=== PATIENT | male | born 2000 | race Caucasian/White ===

== ENCOUNTER 2021-04-12 02:22 | Outpatient (CLI) | payer MEDICAID, SELFPAY ==
[2021-04-12 16:52] LABS: Abs Immature Grans 0.09 10^3/uL (0.0-0.06); Absolute Basophil Count 0.06 10^3/uL (0.0-0.2); Absolute Eosinophil Count 0.08 10^3/uL (0.0-0.7); Absolute Lymphocyte Count 1.89 10^3/uL (1.2-3.4); Absolute Monocyte Count 0.75 10^3/uL (0.1-0.8); Absolute Neutrophil Count 5.76 10^3/uL (1.2-6.7); Basophils % 0.7; Eosinophils % 0.9; HCT 47.7 % (40.0-50.0); HGB 15.9 g/dL (13.5-17.5); Lymphocytes % 21.9; MCHC 33.3 % (32.0-36.0); MPV 9.7 fL (8.0-11.0); Monocytes % 8.7; Neutrophils % 66.8; Nucleated RBC 0 %; Platelet Count 244 10^3/uL (130-400); RBC 5.13 10^6/uL (4.36-5.78); RDW 12.1 % (11.8-14.1); RDW-SD 42.2 fL; WBC 8.63 10^3/uL (4.4-10.8)
[2021-04-12 17:06] LABS: Hemoglobin A1C 4.8 % (<5.7)
[2021-04-12 18:59] LABS: ALT 90 U/L (16-63); AST 196 U/L (15-37); Albumin 4.7 g/dL (3.4-5.0); Alkaline Phosphatase 66 U/L (46-116); Anion Gap 6.5 mmol/L (3-11); BUN 11 mg/dL (7-18); Bilirubin, Total 0.8 mg/dL (0.2-1.0); CO2 31.5 mmol/L (21.0-32.0); CREATININE 0.8 mg/dL (0.70-1.30); Calcium 9.6 mg/dL (8.5-10.1); Chloride 102 mmol/L (98-107); Glucose 92 mg/dL (74-106); Potassium 4.2 mmol/L (3.5-5.1); Sodium 140 mmol/L (136-145); TSH (W/Ref FT4) 1.07 uIU/mL (0.36-3.74); Total Protein 7.7 g/dL (6.4-8.2)
[2021-04-18 17:06] LABS: Testosterone, Total 649 ng/dL (240-950)
== END 2021-04-12 02:23 | disposition home or self-care (01) ==
LOC: LBO 02:22
PROVIDERS: Visit Provider Pediatrics
DX: N52.9 Male erectile dysfunction, unspecified (principal); Z00.00 Encounter for general adult medical examination without abnormal findings
CPT/HCPCS: 36415; 80053; 84403; 83036; 84443; 85025

== ENCOUNTER 2021-05-17 01:44 | Outpatient (CLI) | payer MEDICAID, SELFPAY ==
[2021-05-17 08:20] LABS: ALT 28 U/L (16-63); AST 22 U/L (15-37); Albumin 4.4 g/dL (3.4-5.0); Alkaline Phosphatase 66 U/L (46-116); Bilirubin, Direct 0.2 mg/dL (0.0-0.2); Bilirubin, Total 0.8 mg/dL (0.2-1.0); Creatine Kinase 180 U/L (39-308); Total Protein 7.3 g/dL (6.4-8.2)
[2021-05-17 08:31] LABS: Calculated LDL 102 mg/dL (<100); Cholesterol 170 mg/dL (<200); HDL Cholesterol 57 mg/dL (40-60); Triglyceride 58 mg/dL (<150)
[2021-05-19 12:34] LABS: Ceruloplasmin 21.7 mg/dL
[2021-05-20 09:50] LABS: Alpha 1 Antitrypsin,Serum 155 mg/dL (90-200)
[2021-05-20 11:58] LABS: Hepatitis A Antibody IgM Negative (Negative); Hepatitis B Core Antibody Negative (Negative); Hepatitis B surface Ag Negative (Negative); Hepatitis C Ab w Rflx HCV PCR Negative (Negative)
[2021-05-21 13:48] LABS: ANA Interpretation Positive (Negative); ANA Titer Pattern 1:160 Speckled
== END 2021-05-17 01:45 | disposition home or self-care (01) ==
LOC: LBO 01:44
PROVIDERS: PCP Pediatrics; Visit Provider Pediatrics
DX: R74.01 Elevation of levels of liver transaminase levels (principal)
CPT/HCPCS: 36415; 80061; 80076; 82390; 82550; 86704; 86709; 86803; 87340; 82103; 86038

== ENCOUNTER 2025-01-02 13:54 | Outpatient (CLI) | payer OTHER, MEDICAID, SELFPAY ==
[2025-01-02 15:43] LABS: HCT 44.9 % (40.0-50.0); HGB 15.3 g/dL (13.5-17.5); MCH 31.0 pg (27.0-33.0); MCHC 34.1 % (32.0-36.0); MCV 91 fL (80-95); MPV 10.4 fL (8.0-11.0); Platelet Count 260 10^3/uL (130-400); RBC 4.94 10^6/uL (4.36-5.78); RDW 11.9 % (11.8-14.1); RDW-SD 39.8 fL; WBC 9.34 10^3/uL (4.4-10.8)
[2025-01-02 16:09] LABS: Hemoglobin A1C 4.7 % (<5.7)
[2025-01-02 16:27] LABS: ALT 31 U/L (16-63); AST 15 U/L (15-37); Albumin 4.7 g/dL (3.4-5.0); Alkaline Phosphatase 63 U/L (46-116); Anion Gap 10.3 mmol/L (3-11); BUN 14 mg/dL (7-18); Bilirubin, Total 0.9 mg/dL (0.2-1.0); CO2 30.7 mmol/L (21.0-32.0); Calcium 9.5 mg/dL (8.5-10.1); Chloride 102 mmol/L (98-107); Cholesterol 181 mg/dL (<200); Glucose 69 mg/dL (74-106); HDL Cholesterol 63 mg/dL (>or=40); Potassium 3.8 mmol/L (3.5-5.1); Sodium 143 mmol/L (136-145); TSH (W/Ref FT4) 1.26 uIU/mL (0.36-3.74); Total Protein 8.0 g/dL (6.4-8.2); Vitamin B12 932 pg/mL (193-986); Vitamin D 25 Total 22 ng/mL (30-100)
[2025-01-03 11:04] LABS: Syphilis Serology (RPR) Negative (Negative)
[2025-01-03 11:52] LABS: HIV-1/2 Ag & Ab Screen Negative (Negative)
[2025-01-11 17:33] LABS: Testosterone, Free 92.9 pg/mL (35.0-155.0)
== END 2025-01-02 13:55 | disposition home or self-care (01) ==
LOC: LOS 13:55
PROVIDERS: PCP Nurse Practitioner Family; Visit Provider Nurse Practitioner Family
DX: R74.01 Elevation of levels of liver transaminase levels (principal); R53.83 Other fatigue; E29.1 Testicular hypofunction; Z13.1 Encounter for screening for diabetes mellitus; E03.9 Hypothyroidism, unspecified; Z72.51 High risk heterosexual behavior; Z71.1 Person with feared health complaint in whom no diagnosis is made; Z13.220 Encounter for screening for lipoid disorders
CPT/HCPCS: 36415; 80053; 80061; 82306; 84402; 84403; 85027; 87389; 82607; 83036; 84443; 86592